=== PATIENT | female | born 1975 | race Caucasian/White ===

== ENCOUNTER 2024-03-22 18:12 | Emergency (ER) | payer BC ==
[2024-03-22] MEDS: ALBUTEROL SO4 2.5/IPRATROPIUM 0.5 INH SOL 3 ML VIAL.NEB. NEB ONE ×2 (18:22→18:30)
[2024-03-22] MEDS: predniSONE 20 MG TABLET (UD) PO ONE (18:22)
[2024-03-22 18:25] VITALS: BP 128/68; PULSE 92; RESP 20; TEMP 98; BMI 29.5
== END 2024-03-22 18:51 | disposition home or self-care (01) ==
LOC: FER 18:12
PROC: 3E0F7GC Introduction of Other Therapeutic Substance into Respiratory Tract, Via Natural or Artificial Opening (ICD-10-PCS; principal; 2024-03-22)
PROC: 3E0F7GC Introduction of Other Therapeutic Substance into Respiratory Tract, Via Natural or Artificial Opening (ICD-10-PCS; 2024-03-22)
DX: J45.901 Unspecified asthma with (acute) exacerbation (principal); R06.02 Shortness of breath; R05.9 Cough, unspecified; Z20.822 Contact with and (suspected) exposure to COVID-19
CPT/HCPCS: 0241U-QW; 71045-TC-FY; 99284-25

== ENCOUNTER 2024-03-31 14:31 | Emergency (ER) | payer BC ==
[2024-03-31 14:48] VITALS: BP 108/85; PULSE 84; RESP 18; TEMP 98.9; BMI 29.2
[2024-03-31] MEDS ORDERED: predniSONE 20 MG TABLET (UD) ONE (14:50)
[2024-03-31] MEDS ORDERED: ALBUTEROL SO4 2.5/IPRATROPIUM 0.5 INH SOL 3 ML VIAL.NEB. NEB ONE (14:51)
[2024-03-31] MEDS: ALBUTEROL SO4 2.5/IPRATROPIUM 0.5 INH SOL 3 ML VIAL.NEB. NEB SCH (14:55)
[2024-03-31] MEDS: predniSONE 20 MG TABLET (UD) PO ONE (14:55)
[2024-03-31] MEDS ORDERED: ALBUTEROL SO4 HFA INHALER IH ONE (16:22)
[2024-03-31] MEDS: ALBUTEROL SO4 HFA INHALER IH ONE (16:24)
== END 2024-03-31 16:30 | disposition home or self-care (01) ==
LOC: FER 14:31
PROC: 3E0F7GC Introduction of Other Therapeutic Substance into Respiratory Tract, Via Natural or Artificial Opening (ICD-10-PCS; principal; 2024-03-31)
PROC: 3E0F7GC Introduction of Other Therapeutic Substance into Respiratory Tract, Via Natural or Artificial Opening (ICD-10-PCS; 2024-03-31)
DX: R06.02 Shortness of breath (principal); R05.9 Cough, unspecified; R06.2 Wheezing; J45.909 Unspecified asthma, uncomplicated
CPT/HCPCS: 99284-25

== ENCOUNTER 2024-04-07 13:18 | Emergency (ER) | payer BC ==
[2024-04-07 13:27] VITALS: BP 107/78; RESP 20; TEMP 98; BMI 29.2
[2024-04-07] MEDS ORDERED: ALBUTEROL SO4 0.083% IH SOL 2.5 MG/3 ML VIAL.NEB. NEB ONE (13:46)
[2024-04-07] MEDS ORDERED: guaiFENesin/CODEINE 10 ML UNIT-DOSE CUPS ONE (13:46)
[2024-04-07] MEDS: ALBUTEROL SO4 0.083% IH SOL 2.5 MG/3 ML VIAL.NEB. NEB ONE (13:49)
[2024-04-07] MEDS: guaiFENesin/CODEINE 10 ML UNIT-DOSE CUPS PO ONE (13:49)
[2024-04-07] MEDS: BUDESONIDE 0.25 MG/2ML INH SUSP VIAL NEB ONE (14:00)
[2024-04-07 15:31] VITALS: PULSE 74
== END 2024-04-07 15:35 | disposition home or self-care (01) ==
LOC: FER 13:18
PROC: 3E0F7GC Introduction of Other Therapeutic Substance into Respiratory Tract, Via Natural or Artificial Opening (ICD-10-PCS; principal; 2024-04-07)
PROC: 3E0F7GC Introduction of Other Therapeutic Substance into Respiratory Tract, Via Natural or Artificial Opening (ICD-10-PCS; 2024-04-07)
DX: R05.2 Subacute cough (principal); R09.81 Nasal congestion; J98.01 Acute bronchospasm
CPT/HCPCS: 71046-TC-FY; 99284-25

== ENCOUNTER 2024-07-06 11:34 | Inpatient (IN) | payer BC ==
[2024-07-06] MEDS ORDERED: ALBUTEROL SO4 2.5/IPRATROPIUM 0.5 INH SOL 3 ML VIAL.NEB. NEB ONE ×4 (11:37→17:22)
[2024-07-06] MEDS: ALBUTEROL SO4 2.5/IPRATROPIUM 0.5 INH SOL 3 ML VIAL.NEB. NEB SCH (12:14)
[2024-07-06] MEDS: predniSONE 20 MG TABLET (UD) PO ONE (12:47)
[2024-07-06] MEDS ORDERED: predniSONE 20 MG TABLET (UD) ONE (12:48)
[2024-07-06] MEDS: MAGNESIUM SULFATE IN WATER 2 GM/50 ML IVPB IVPB ONE (13:30)
[2024-07-06] MEDS: ALBUTEROL SO4 2.5/IPRATROPIUM 0.5 INH SOL 3 ML VIAL.NEB. NEB ONE (13:30)
[2024-07-06] MEDS ORDERED: MAGNESIUM 1GM/D5W - 2 GM/200 ML IVPB IVPB ONE (13:36)
[2024-07-06 14:41] LABS: ALBUMIN 4.6 g/dl (3.4-5.0); BILIRUBIN,TOTAL 0.4 mg/dl (0.2-1); CALCIUM 10.1 mg/dl (8.5-10.1); CREATININE 0.9 mg/dl (0.6-1.3); POTASSIUM 3.8 mmol/L (3.5-5.1); TOT PROT 8.3 g/dl (6.4-8.2)
[2024-07-06 14:58] LABS: HEMATOCRIT 43.3 % (32.4-45.2); MCH 28.6 pg (25.7-33.7); MCHC 31.3 g/dl (32.0-36.0); MEAN CELL VOLUME 91.5 fl (80-96); MEAN PLT VOLUME 8.4 fl (7.5-11.1); PLATELET COUNT 277.4 10^3/uL (134-434); RBC 4.73 10^6/uL (3.60-5.2); RDW 14.6 % (11.6-15.6); WHITE BLOOD COUNT 18.6 10^3/uL (4.0-10.8)
[2024-07-06 15:04] LABS: HEMOGLOBIN 13.6 G/dL (10.7-15.3)
[2024-07-06 15:48] LABS: ANISOCYTOSIS OCCASIONAL; PLATELET ESTIMATE ADEQUATE
[2024-07-06] MEDS: methylPREDNISolone NA SUCC 125 MG/2 ML VIAL IVPB SCH (17:36)
[2024-07-06 18:19] VITALS: BMI 60.3
[2024-07-06 19:15] LABS: HEMATOCRIT 40.7 % (32.4-45.2); HEMOGLOBIN 12.6 G/dL (10.7-15.3); MCH 28.2 pg (25.7-33.7); MEAN CELL VOLUME 90.9 fl (80-96); PLATELET COUNT 300.2 10^3/uL (134-434); RBC 4.48 10^6/uL (3.60-5.2); RDW 14.6 % (11.6-15.6); WHITE BLOOD COUNT 12.4 10^3/uL (4.0-10.8)
[2024-07-06 19:25] LABS: ALBUMIN 4.4 g/dl (3.4-5.0); BILIRUBIN,TOTAL 0.3 mg/dl (0.2-1); CALCIUM 9.9 mg/dl (8.5-10.1); CREATININE 0.9 mg/dl (0.6-1.3); POTASSIUM 4.3 mmol/L (3.5-5.1)
[2024-07-06] MEDS: ALBUTEROL SO4 2.5/IPRATROPIUM 0.5 INH SOL 3 ML VIAL.NEB. NEB PRN (20:04)
[2024-07-06] MEDS: ATORVASTATIN CA 10 MG TABLET (FP) PO SCH (21:24)
[2024-07-06] MEDS: MONTELUKAST NA 10 MG TABLET PO SCH (21:24)
[2024-07-06] MEDS: traZODone HCL 50 MG TABLET (FP) PO SCH (21:25)
[2024-07-07 09:43] LABS: ALBUMIN 4.5 g/dl (3.4-5.0); BILIRUBIN,TOTAL 0.4 mg/dl (0.2-1); CREATININE 0.8 mg/dl (0.6-1.3); POTASSIUM 4.6 mmol/L (3.5-5.1); TOT PROT 7.8 g/dl (6.4-8.2)
[2024-07-07 13:05] LABS: BASO % 0.2 % (0-2.0); EOS % 0.1 % (0-4.5); HEMATOCRIT 35.7 % (32.4-45.2); HEMOGLOBIN 11.8 GM/dL (10.7-15.3); LYMPH % 14.1 % (8-40); MCH 28.9 pg (25.7-33.7); MEAN CELL VOLUME 87.7 fl (80-96); MEAN PLT VOLUME 8.2 fl (7.5-11.1); MONO % 3.4 % (3.8-10.2); NEUT % 82.2 % (42.8-82.8); PLATELET COUNT 307 10^3/uL (134-434); RBC 4.07 M/mm3 (3.60-5.2); RDW 14.5 % (11.6-15.6); WHITE BLOOD COUNT 17.6 K/mm3 (4.0-10.0)
[2024-07-07] MEDS ORDERED: ALBUTEROL SO4 0.083% IH SOL 2.5 MG/3 ML VIAL.NEB. NEB PRN (14:13)
[2024-07-07] MEDS ORDERED: ACETAMINOPHEN W/ CODEINE LIQ 5 ML CUP PO PRN ×2 (14:28→14:38)
[2024-07-07] MEDS: ALBUTEROL SO4 0.083% IH SOL 2.5 MG/3 ML VIAL.NEB. NEB SCH (15:13)
[2024-07-07] MEDS: guaiFENesin/CODEINE 10 ML UNIT-DOSE CUPS PO PRN (15:13)
[2024-07-07] MEDS: AZITHROMYCIN IVPB 500 MG/250 ML BAG IVPB SCH (15:15)
[2024-07-07] MEDS ORDERED: ALBUTEROL SO4 2.5/IPRATROPIUM 0.5 INH SOL 3 ML VIAL.NEB. NEB SCH (16:00)
[2024-07-07] MEDS: methylPREDNISolone NA SUCC 40 MG/1 ML VIAL IVPB SCH (17:35)
[2024-07-07] MEDS: BUDESONIDE/FORMETEROL FUMARATE 160/4.5 mcg INHALER IH SCH (22:36)
[2024-07-08] MEDS: ENOXAPARIN NA (PORCINE) 40 MG/0.4 ML DISP.SYRIN SQ SCH (17:05)
[2024-07-08] MEDS: ALBUTEROL SO4 2.5/IPRATROPIUM 0.5 INH SOL 3 ML VIAL.NEB. NEB SCH (22:10)
[2024-07-09 08:23] LABS: ALBUMIN 4.1 g/dl (3.4-5.0); BILIRUBIN,TOTAL 0.4 mg/dl (0.2-1); CALCIUM 9.7 mg/dl (8.5-10.1); CREATININE 0.9 mg/dl (0.6-1.3); POTASSIUM 4.5 mmol/L (3.5-5.1)
[2024-07-09 10:11] LABS: HEMOGLOBIN 11.3 GM/dL (10.7-15.3); MCHC 33.2 g/dl (32.0-36.0); MEAN CELL VOLUME 87.5 fl (80-96); MEAN PLT VOLUME 8.5 fl (7.5-11.1); PLATELET COUNT 321 10^3/uL (134-434); RBC 3.89 M/mm3 (3.60-5.2); RDW 14.8 % (11.6-15.6); WHITE BLOOD COUNT 20.8 K/mm3 (4.0-10.0)
[2024-07-09 10:49] LABS: ANISOCYTOSIS 0; MACROCYTOSIS 0
[2024-07-09] MEDS: FLUTICASONE PROP 0.05% 16 GM NASAL SPRAY NS SCH (11:52)
[2024-07-09] MEDS: LORATADINE 10 MG TABLET PO SCH (11:52)
[2024-07-09] MEDS: PANTOPRAZOLE 40 MG TABLET PO SCH (11:52)
[2024-07-11] MEDS: ALBUTEROL SO4 0.083% IH SOL 2.5 MG/3 ML VIAL.NEB. NEB PRN (04:44)
[2024-07-11] MEDS: BENZONATATE 200 MG CAPSULE PO PRN (21:04)
[2024-07-12] MEDS ORDERED: PROMETHAZINE HCL 25 MG TABLET PO PRN (12:48)
[2024-07-12 14:05] VITALS: BP 111/78; PULSE 80; RESP 16; TEMP 98.5
[2024-07-14 23:07] LABS: BORDETELLA PERTUSSIS IG-M <1.0 index (0.0-0.9); PERTUSSIS TOXIN IGA <1.0 index (0.0-0.9); PERTUSSIS TOXIN IGG 2.47 index (0.00-0.94)
== END 2024-07-12 15:27 | disposition home or self-care (01) | DRG 202 ==
LOC: FER 11:34 → FM/S 15:43 → OBSVTOIN 07-10 10:57
DX: J45.41 Moderate persistent asthma with (acute) exacerbation (principal); Z68.44 Body mass index [BMI] 60.0-69.9, adult; J06.9 Acute upper respiratory infection, unspecified; E11.9 Type 2 diabetes mellitus without complications; I10 Essential (primary) hypertension; E78.5 Hyperlipidemia, unspecified; J20.9 Acute bronchitis, unspecified; D72.10 Eosinophilia, unspecified; F41.8 Other specified anxiety disorders; E66.01 Morbid (severe) obesity due to excess calories
CPT/HCPCS: 0241U-QW; 36415; 71045-TC-FY; 80053; 85025; 85027; 86615; 87070; 87899; 94640; 99291; G0378